=== PATIENT | male | born 1950 | race Caucasian/White ===

== ENCOUNTER 2019-09-01 22:11 | Inpatient (IN) | payer MEDICARE, BC ==
[~2019-09-01] VITALS: Ht 180.3 cm; Wt 79.4 kg
--- NOTE | 2019-09-01 22:15 | NUR ---
PT BIB EMS C/O R HIP PAIN S/P MISSING A STEP GOING DOWN STAIRS. (+) SHORTENING (+) EXTERNAL ROTATION. PT DENIES KO. PT AOX4. NAD NOTED. RESP EVEN AND UNLABORED. PT REPORTS PAIN ONLY WITH MOVEMENT. PT ON MONITOR IN BED 3 WITH FAMILY AT BEDSIDE. WILL CONTINUE TO MONITOR.
--- NOTE | 2019-09-01 22:46 | NUR ---
RADIOLOGY AT BEDSIDE FOR XRAY
--- NOTE | 2019-09-01 22:55 | NUR ---
CALLED SUP FOR MS BED
--- NOTE | 2019-09-01 22:57 | NUR ---
TECH AT BEDSIDE FOR EKG
[2019-09-01] MEDS ORDERED: IV NS 0.9% 500 ML BAG IV ONE (23:00)
[2019-09-01] MEDS ORDERED: MORPHINE SULFATE INJ 2 MG/ML DISP.SYRIN IV ONE (23:00)
[2019-09-01] MEDS ORDERED: ONDANSETRON HCL/PF 4 MG/2 ML VIAL IVP ONE (23:00)
--- NOTE | 2019-09-01 23:07 | NUR ---
BLOOD DRAWN AND GIVEN TO PHLEB
[2019-09-01 23:10] LABS: BASOPHILS # (AUTO) 0.1 /CMM (0.0-0.2); BASOPHILS % (AUTO) 0.6 % (0.0-2.0); EOSINOPHILS % (AUTO) 1.9 % (0.0-6.0); HEMATOCRIT 44 % (39-51); HEMOGLOBIN 14.4 g/dL (13.5-17.5); LYMPHOCYTES # (AUTO) 1.5 /CMM (0.8-4.8); LYMPHOCYTES % (AUTO) 8.1 % (20.0-44.0); MEAN CORPUSCULAR HGB CONC 33 g/dl (31.0-36.0); MEAN CORPUSCULAR VOLUME 93 fL (80-96); MONOCYTES % (AUTO) 5.3 % (2.0-12.0); NEUTROPHILS # (AUTO) 15.3 /CMM (1.8-8.9); NEUTROPHILS % (AUTO) 84.1 % (43.0-81.0); PLATELET COUNT (AUTO) 367 /CMM (150-450); RED BLOOD CELL COUNT(AUTO) 4.75 MIL/uL (4.5-6.0); WHITE BLOOD COUNT (AUTO) 18.2 K/uL (4.3-11.0)
--- NOTE | 2019-09-01 23:11 | NUR ---
PT REPORTS NO PAIN AND REFUSING PAIN MEDICATION. AWARE.
--- NOTE | 2019-09-01 23:11 | NUR ---
RADIOLOGY AT BEDSIDE FOR XRAY
[2019-09-01 23:21] LABS: CALCIUM, SERUM 8.7 mg/dL (8.5-10.1); CREATININE 1.3 mg/dL (0.6-1.3); POTASSIUM 4.2 mmol/L (3.5-5.1)
[2019-09-01] MEDS ORDERED: ONDANSETRON HCL/PF 4 MG/2 ML VIAL ONE (23:28)
[2019-09-01] MEDS ORDERED: MORPHINE SULFATE INJ 4 MG/ML DISP.SYRIN ONE (23:28)
[2019-09-01] MEDS ORDERED: IV D5/0.45 NACL 1,000 ML IV PRN (23:36)
--- NOTE | 2019-09-01 23:46 | NUR ---
GAVE REPORT TO KRISTINA PEREZ FOR BRANDAN
--- NOTE | 2019-09-01 23:47 | NUR ---
LEO NOTE: RECEIVED REPORT FROM LEO YU FOR BRANDAN.
[2019-09-02] VITALS (11 sets, daily range): BP systolic 123–153; BP diastolic 64–80
[2019-09-02] MEDS ORDERED: MORPHINE SULFATE INJ 2 MG/ML DISP.SYRIN IV PRN
[2019-09-02] MEDS ORDERED: ACETAMINOPHEN 325 MG TABLET PO PRN
[2019-09-02] MEDS ORDERED: ZOLPIDEM TARTRATE 5 MG TABLET PO PRN
[2019-09-02] MEDS ORDERED: Z GUARD REMEDY 2 OZ OINT TP PRN
[2019-09-02] MEDS ORDERED: ONDANSETRON HCL/PF 4 MG/2 ML VIAL IVP PRN
[2019-09-02] MEDS ORDERED: MAG HYDROX/AL HYDROX/SIMETH 30 ML UDC PO PRN
[2019-09-02] MEDS ORDERED: MAGNESIUM HYDROXIDE 30 ML UDC PO PRN
--- NOTE | 2019-09-02 00:15 | NUR ---
SOUND INSTALLATION WORKER NOTES: PATIENT TRANSFERRED TO UNIT VIA ACLS PROTOCOL. PATIENT IS A 68-YEAR-OLD MALE WITH DX: RIGHT FEMUR FRACTURE. PATIENT IS AAOX4. VERBALLY RESPONSIVE. NO RESPIRATORY DISTRESS, ON ROOM AIR, O2 SAT 96%. IV ACCESS ON RIGHT AC G18 CLEAN, DRY, INTACT. STARTED ON D5 1/2 NS AT 75 MLS/HR. PATIENT STILL HAS 5/10 RIGHT HIP/LEG PAIN. RECEIVED MORPHINE IV IN ER. PATIENT ALSO STATES HE DOES NOT WANT ANY MORE PAIN MEDICATIONS AT THIS TIME. VITAL SIGNS TAKEN AND BODY ASSESSMENT DONE. PATIENT HAS (+) RIGHT LEG SHORTENING AND EXTERNAL ROTATION. (R) LEG KEPT IMMOBILIZED. PATIENT HAS A SCHEDULED SURGERY IN AM FOR RIGHT HIP NAILING. ON NPO. CONSENTS SIGNED BY , SIVAKUMAR ESPOSITO. PATIENT REMAINS ON BED REST AND WISHES TO BE FULL CODE. DR. DAVIES MADE AWARE. WILL CONT. TO MONITOR FOR CHANGES. Addendum: 09/02/19 at 0526 by ANA SAWYER RN PER PATIENT, HE DOES NOT TAKE ANY MEDICATIONS AT HOME.
[2019-09-02 06:30] LABS: BASOPHILS % (AUTO) 0.1 % (0.0-2.0); EOSINOPHILS % (AUTO) 0.1 % (0.0-6.0); HEMATOCRIT 40 % (39-51); LYMPHOCYTES # (AUTO) 1.1 /CMM (0.8-4.8); MEAN CORPUSCULAR HGB CONC 33 g/dl (31.0-36.0); MEAN CORPUSCULAR VOLUME 93 fL (80-96); MONOCYTES # (AUTO) 1.3 /CMM (0.1-1.30); MONOCYTES % (AUTO) 9.6 % (2.0-12.0); NEUTROPHILS # (AUTO) 11.2 /CMM (1.8-8.9); NEUTROPHILS % (AUTO) 82.2 % (43.0-81.0); PLATELET COUNT (AUTO) 339 /CMM (150-450); RED BLOOD CELL COUNT(AUTO) 4.28 MIL/uL (4.5-6.0); WHITE BLOOD COUNT (AUTO) 13.6 K/uL (4.3-11.0)
[2019-09-02 06:45] LABS: CALCIUM, SERUM 8.3 mg/dL (8.5-10.1); CREATININE 1.2 mg/dL (0.6-1.3); MAGNESIUM 1.8 mg/dL (1.8-2.4); PHOSPHORUS 2.9 mg/dL (2.5-4.9); POTASSIUM 4.3 mmol/L (3.5-5.1)
--- NOTE | 2019-09-02 07:30 | NUR ---
RN CLOSING NOTES: PATIENT IN BED, ASLEEP, BUT EASILY AROUSABLE. PATIENT IS SCHEDULED FOR SURGERY TODAY. INFORMED AM SHIFT NURSE TO REMOVE GLASSES, ANY JEWELRY, AND DENTURES FOR SURGERY AND REVIEW CHECKLIST AGAIN. REMAINED NPO DURING SHIFT. OFFERED URINAL TO PATIENT. PATIENT STATED HE DOES NOT WANT TO VOID AT THIS TIME. ENDORSED TO AM SHIFT NURSE FOR CONTINUITY OF CARE.
--- NOTE | 2019-09-02 07:45 | NUR ---
MS/RN - Assessment Patient is awake, A/O x 4, here for right femur fracture, reports mild pain to right leg but refused medication for now, stable on room air, remain afebrile. Patient refused skin assessment, stated "I don't have any wounds." Skin on BLE is warm to touch, denies numbness or tingling sensation on both lower ext, non-weight bearing on RLE. IVF D5 1/2 NS at 75 ml/hr infusing well on the RAC with no signs of infiltration. Patient is currently NPO, scheduled for right hip nailing at 10:[address] Briggs, consent signed by . Labs reviewed, no critical results. Fall precautions maintained. All needs attended. Will continue with current plan of care.
[2019-09-02 08:01] LABS: THYROID STIMULATING HORMONE 0.632 uIU/mL (0.358-3.74)
[2019-09-02] MEDS: PANTOPRAZOLE 40 MG VIAL IV SCH (08:10)
--- NOTE | 2019-09-02 10:30 | NUR ---
MS/RN - Notes Patient taken to OR for right hip nailing, VSS, pre-op checklist completed, dentures was removed. Peripheral IV on the RAC 18 is patent and intact. Endorsed to OR staff accordingly.
[2019-09-02] MEDS ORDERED: BACITRACIN 50000 UNITS/VIAL ONE (11:19)
[2019-09-02] MEDS ORDERED: BUPIVACAINE 0.5 % PF 150 MG/30 ML VIAL ONE (12:39)
[2019-09-02] MEDS: IV LR 1000 ML 1,000 ML IV PRN (14:15)
--- NOTE | 2019-09-02 14:50 | NUR ---
MS/RN - Notes 14:10 - Patient came back from surgery s/p right hip nailing in no acute distress, appears comfortable, post op vital signs monitored per protocol, Smith catheter in place draining tea colored urine, good output, to be removed POD#1. Right hip dressing is clean, dry, and intact. RLE is warm to touch, no swelling, denies numbness or tingling sensation. at bedside updated on plan of care. 14:30 - Post op orders noted and carried out. 14:35 - Patient c/o right hip pain MI=8/10, Morphine sulfate 4 mg IVP given as ordered .
[2019-09-02 15:00] LABS: HEMOGLOBIN 12.6 g/dL (13.5-17.5)
--- NOTE | 2019-09-02 18:50 | NUR ---
MS/RN - End of shift summary No significant change in condition seen, denies pain, remain afebrile, stable on room air. Right hip dressing is clean, dry, and intact. IVF LR at 75 ml/hr infusing well on the left wrist with no signs of infiltration. All needs attended. Will endorse to night RN for continuity of care.
--- NOTE | 2019-09-02 19:20 | NUR ---
RN OPENING NOTES: PATIENT IN BED, ASLEEP, BUT EASILY AROUSABLE. NO RESPIRATORY DISTRESS. ON ROOM AIR, TOLERATING WELL. PATIENT HAD (R) HIP NAILING SURGERY TODAY. NO POST-OP COMPLICATIONS NOTED AT THIS TIME. PATIENT STATES HE HAS TOLERABLE 2/10 PAIN RIGHT NOW AND DOES NOT NEED PAIN MEDICATIONS. DRY DRESSING ON (R) HIP INTACT. NO ACTIVE BLEEDING. SAFETY PRECAUTIONS IMPLEMENTED. BED LOCKED AND IN LOW POSITION. PATIENT HAS (R) AC G18 AND (L) WRIST G20. ALL IV SITES C/D/I. FLUSHING WELL. ON LR AT 75 MLS/HR. ALL NEEDS WILL BE ATTENDED TO. CALL LIGHT PLACED WITHIN REACH. WILL CONT. TO MONITOR.
[2019-09-02] MEDS ORDERED: CEFAZOLIN 1 GM VIAL IV SCH (20:00)
[2019-09-02] MEDS: CEFAZOLIN 2 GM in IV D5W 100 ML IV SCH (21:10)
[2019-09-03] MEDS: IV LR 1000 ML 1,000 ML IV PRN (05:06)
[2019-09-03] MEDS: CEFAZOLIN 2 GM in IV D5W 100 ML IV SCH (05:07)
[2019-09-03 06:38] LABS: BASOPHILS % (AUTO) 0.2 % (0.0-2.0); EOSINOPHILS % (AUTO) 1.2 % (0.0-6.0); HEMATOCRIT 32 % (39-51); HEMOGLOBIN 11.1 g/dL (13.5-17.5); LYMPHOCYTES # (AUTO) 1.6 /CMM (0.8-4.8); LYMPHOCYTES % (AUTO) 18.2 % (20.0-44.0); MEAN CORPUSCULAR HGB CONC 34 g/dl (31.0-36.0); MEAN CORPUSCULAR VOLUME 92 fL (80-96); MONOCYTES # (AUTO) 1.3 /CMM (0.1-1.30); MONOCYTES % (AUTO) 15.1 % (2.0-12.0); NEUTROPHILS # (AUTO) 5.6 /CMM (1.8-8.9); NEUTROPHILS % (AUTO) 65.3 % (43.0-81.0); PLATELET COUNT (AUTO) 256 /CMM (150-450); RED BLOOD CELL COUNT(AUTO) 3.52 MIL/uL (4.5-6.0); WHITE BLOOD COUNT (AUTO) 8.6 K/uL (4.3-11.0)
[2019-09-03 06:58] LABS: LYMPHOCYTES % (MANUAL) 18 % (16-48); MONOCYTES % (MANUAL) 16 % (0-11.0); NEUTROPHILS % (MANUAL) 66 (42-76)
--- NOTE | 2019-09-03 07:15 | NUR ---
RN CLOSING NOTES: PATIENT IN BED, ASLEEP, BUT EASILY AROUSABLE. NO SOB. ON ROOM AIR, TOLERATING WELL. S/P RIGHT HIP NAILING SURGERY. NO POST-OP COMPLICATIONS NOTED AT THIS TIME. PATIENT DECLINED PAIN MEDICATION DURING SHIFT, STATED HE HAS TOLERABLE PAIN. DRY DRESSING ON (R) HIP INTACT. NO ACTIVE BLEEDING. SAFETY PRECAUTIONS IMPLEMENTED. BED LOCKED AND IN LOW POSITION. PATIENT HAS (R) AC G18 AND (L) WRIST G20. ALL IV SITES C/D/I. FLUSHING WELL. ON LR AT 75 MLS/HR. LOPEZ CATHETER TO BE DC'D TODAY PER AM NURSE'S ENDORSEMENT YESTERDAY. ENDORSED TO AM SHIFT NURSE FOR BRANDAN.
[2019-09-03] MEDS: PANTOPRAZOLE 40 MG VIAL IV SCH (09:01)
[2019-09-03] MEDS: ENOXAPARIN SODIUM 40 MG/0.4 ML DISP.SYRIN SQ SCH (09:02)
--- NOTE | 2019-09-03 09:12 | NUR ---
alert, oriented, and appropriate, did not eat breakfast, " no appetite". declined to take meds right now, ( Protonix ivp, and Lovenox), despite of explainations what they are first. " want to consult with my first before i take those". No complaint of pain at this time
[2019-09-03 09:58] LABS: MAGNESIUM 1.9 mg/dL (1.8-2.4); PHOSPHORUS 2.5 mg/dL (2.5-4.9); POTASSIUM 4.2 mmol/L (3.5-5.1)
--- NOTE | 2019-09-03 10:58 | NUR ---
at the bedside, all meds given at this time. PT , initial assessment, with 2 people assist, no ambulation yet. asked for bsc for bowel movement, if needed. Smith to discontinue soon
--- NOTE | 2019-09-03 15:22 | NUR ---
orellana out by this time, 1515. output from orellana 450cc, explained after the discontinuation 0f orellana, needs to urinate within 5-6hrs, one pitcher of fresh water given, and urinal offered.
[2019-09-03] MEDS: HYDROCODONE/APAP 5/325MG 1 EACH TABLET PO PRN (19:55)
[2019-09-03 20:00] VITALS: BP 137/67
[2019-09-03 20:49] VITALS: BP 137/67
[2019-09-04] MEDS: HYDROCODONE/APAP 5/325MG 1 EACH TABLET PO PRN ×2 (02:09→16:38)
[2019-09-04 04:00] VITALS: BP 111/64
--- NOTE | 2019-09-04 04:34 | NUR ---
mEDICATED X2 FOR RIGHT HIP PAIN OF 7 WITH NORCO TAB 1 AND EFFECTIVE. USES THE URINAL THRU THE NIGHT. NOTED RIGHT HIP DRESSING CDI THE RIGHT LEG HAS ASTRONG PALPABLE PEDAL PULSE. MOVEMENT AND WARMTH TO THE RIGHT LEG PRESENT. PATIENT SATS DROPPED TO 88% INTRODUCED AND TAUGHT HIM HOW TO USE THE INC. SPIROM AND PLACED 02 ON HIM N/C 2 LITERS SAT ^ TO 92%. HE IS ABLE TO GET THEMINC SPIR UP 2000ML
[2019-09-04 05:07] VITALS: BP 111/64
[2019-09-04 06:45] LABS: BASOPHILS % (AUTO) 0.4 % (0.0-2.0); EOSINOPHILS % (AUTO) 2.6 % (0.0-6.0); HEMATOCRIT 33 % (39-51); LYMPHOCYTES # (AUTO) 1.9 /CMM (0.8-4.8); LYMPHOCYTES % (AUTO) 19.9 % (20.0-44.0); MEAN CORPUSCULAR HGB CONC 34 g/dl (31.0-36.0); MEAN CORPUSCULAR VOLUME 92 fL (80-96); MONOCYTES # (AUTO) 1.1 /CMM (0.1-1.30); MONOCYTES % (AUTO) 11.8 % (2.0-12.0); NEUTROPHILS # (AUTO) 6.3 /CMM (1.8-8.9); NEUTROPHILS % (AUTO) 65.3 % (43.0-81.0); PLATELET COUNT (AUTO) 235 /CMM (150-450); RED BLOOD CELL COUNT(AUTO) 3.53 MIL/uL (4.5-6.0); WHITE BLOOD COUNT (AUTO) 9.6 K/uL (4.3-11.0)
[2019-09-04 07:21] LABS: CALCIUM, SERUM 8.3 mg/dL (8.5-10.1); CREATININE 0.9 mg/dL (0.6-1.3); POTASSIUM 3.4 mmol/L (3.5-5.1)
[2019-09-04] MEDS: PANTOPRAZOLE 40 MG VIAL IV SCH (08:50)
[2019-09-04] MEDS: ENOXAPARIN SODIUM 40 MG/0.4 ML DISP.SYRIN SQ SCH (08:50)
--- NOTE | 2019-09-04 09:43 | NUR ---
alert, oriented, and anxious to go to rehab, " I really want to get out of bed, and start walking", no complaint of pain on R hip, awaiting PT today
[2019-09-04] MEDS ORDERED: POTASSIUM CHLORIDE 20 MEQ TAB.PRT.SR PO ONE (11:00)
--- NOTE | 2019-09-04 12:52 | NUR ---
2 nd day of PT, now patient starts going to bathroom, with a walker. K+ 3.4, got replaced with 40MeQ po now. will be leaving for [facility] soon,
--- NOTE | 2019-09-04 14:08 | NUR ---
report given to [facility], , Cornelio took the report, all questions answered, patient is to get picked up between [phone] this evening, both the patient and made aware.
--- NOTE | 2019-09-04 16:50 | NUR ---
just now, complained of pain on R leg, one po NORCO given, prior to departure.
[2019-09-05] MEDS ORDERED: PANTOPRAZOLE 40 MG TABLET.DR PO SCH (07:30)
== END 2019-09-04 17:10 | DRG 482 ==
LOC: ER 22:14 → MEDSG1 23:10
PROVIDERS: ADMIT Student in an Organized Health Care Education/Training Program; ATTEND Nurse Practitioner Acute Care
PROC: 0QS606Z Reposition Right Upper Femur with Intramedullary Internal Fixation Device, Open Approach (ICD-10-PCS; principal; 2019-09-02)
DX: S72.141A Displaced intertrochanteric fracture of right femur, initial encounter for closed fracture (principal); D72.829 Elevated white blood cell count, unspecified; Y92.009 Unspecified place in unspecified non-institutional (private) residence as the place of occurrence of the external cause; F17.200 Nicotine dependence, unspecified, uncomplicated; W10.8XXA Fall (on) (from) other stairs and steps, initial encounter; E87.6 Hypokalemia; D63.8 Anemia in other chronic diseases classified elsewhere; M21.619 Bunion of unspecified foot
CPT/HCPCS: 36415; 71045-TC; 73501; 73502; 73552; 80048-TC; 80061-TC; 83735-TC; 84100-TC; 84443-TC; 85025-TC; 85027-TC; 85730-TC; 86850-TC; 87081-TC; 97110-TC; 97116-TC; 97530-TC; C9113; G0378; J0690; J1650; J2270; J2405; J3490; J7040; J7060; J7120